=== PATIENT | male | born 1945 | race Caucasian/White ===

== ENCOUNTER → 2017-02-14 | Outpatient (CLI) | payer MEDICARE, OTHER ==
[~2017-02-14] MED LIST: HYDR-3144 PO; LACT1CAP35 PO; LATA2.5D3 EACHEYE; LEVO100T5 PO; LISI-170 PO
[2017-02-14 15:10] LABS: ASPARTATE AMINO TRANSFERASE 21 U/L (15-37); BLOOD UREA NITROGEN 24 mg/dL (7-18)
== END | disposition home or self-care (01) ==
LOC: STAR 13:44
PROVIDERS: ATTEND Orthopaedic Surgery Orthopaedic Surgery of the Spine
DX: Z01.818 Encounter for other preprocedural examination (principal); M47.817 Spondylosis without myelopathy or radiculopathy, lumbosacral region; M46.1 Sacroiliitis, not elsewhere classified; Z98.1 Arthrodesis status
CPT/HCPCS: 36415; 71020; 80053; 81003; 85025; 93005

== ENCOUNTER 2017-02-22 08:25 | Inpatient (IN) | payer MEDICARE, OTHER ==
[~2017-02-22] VITALS: Ht 167.6 cm; Wt 80.4 kg
[2017-02-22] MEDS ORDERED: BUPIVACAINE/PF 0.5% ONE (08:58)
[2017-02-22] MEDS ORDERED: EPINEPHRINE 1 MG/ML, 1ML ONE (08:58)
[2017-02-22] MEDS ORDERED: NEOSPORIN OINT, 15GM ONE (08:58)
[2017-02-22] MEDS ORDERED: LACTATED RINGERS 1,000 ML IV SCH (09:11)
[2017-02-22 09:15] VITALS: BP 136/89
[2017-02-22] MEDS ORDERED: MIDAZOLAM 1 MG/ML, 2ML ONE (10:17)
[2017-02-22] MEDS ORDERED: FENTANYL PF 250 MCG/5ML ONE (10:17)
[2017-02-22] MEDS ORDERED: MAGNESIUM HYDROXIDE 8%, 30ML UDC PO PRN (11:00)
[2017-02-22] MEDS ORDERED: morphine SULFATE 10 MG/ML, 1ML IV PRN (11:00)
[2017-02-22] MEDS ORDERED: SENNA/DOCUSATE TABLET PO PRN (11:00)
[2017-02-22] MEDS ORDERED: ONDANSETRON 2MG/ML, 2ML IV PRN (11:00)
[2017-02-22] MEDS ORDERED: BISACODYL 10 MG SUPP PR PRN (11:00)
[2017-02-22] MEDS ORDERED: PROMETHAZINE 25 MG/ML, 1ML IM PRN (11:00)
[2017-02-22] MEDS ORDERED: DIPHENHYDRAMINE 25 MG CAPSULE PO PRN (11:00)
[2017-02-22] MEDS ORDERED: HYDROcodone/APAP 5/325 TABLET PO PRN (11:00)
[2017-02-22] MEDS ORDERED: ALUMINUM/MAG/SIMETHICONE 30 ML UDC PO PRN (11:00)
[2017-02-22] MEDS ORDERED: ALBUTEROL/IPRATROPIUM 2.5MG/0.5MG, 3 ML NPPB PRN (11:30)
[2017-02-22] MEDS ORDERED: MIDAZOLAM 1 MG/ML, 2ML IV PRN (11:30)
[2017-02-22] MEDS ORDERED: ACETAMINOPHEN 325 MG TABLET PO PRN (11:30)
[2017-02-22] MEDS ORDERED: MEPERIDINE/PF 25MG/0.5ML IVPush PRN (11:30)
[2017-02-22] MEDS ORDERED: LABETALOL 5MG/ML, 20ML IV PRN (11:30)
[2017-02-22] MEDS ORDERED: ONDANSETRON 2MG/ML, 2ML IVPush PRN (11:30)
[2017-02-22] MEDS ORDERED: hydrALAzine 20 MG/ML, 1ML IV PRN (11:30)
[2017-02-22] MEDS ORDERED: PROMETHAZINE 25 MG/ML, 1ML IV PRN (11:30)
[2017-02-22] MEDS ORDERED: OXYcodone 5 MG/5 ML ORAL.SOL UDC PO PRN (11:30)
[2017-02-22] MEDS ORDERED: ACETAMINOPHEN 650 MG/20.3 ML UDC ONE (12:02)
[2017-02-22] MEDS ORDERED: OXYcodone 5 MG/5 ML ORAL.SOL UDC ONE (12:02)
[2017-02-22] MEDS ORDERED: FENTANYL PF 100 MCG/2ML ONE (12:02)
[2017-02-22] MEDS: FENTANYL PF 100 MCG/2ML IV PRN ×2 (12:10→12:20)
[2017-02-22] MEDS ORDERED: HYDROmorphone 1 MG/ML, 1ML ONE ×2 (12:32→13:04)
[2017-02-22] MEDS: HYDROmorphone 1 MG/ML, 1ML IV PRN ×5 (12:34→13:15)
[2017-02-22] MEDS: D5%-0.45% NACL 1,000 ML IV SCH (14:28)
[2017-02-22] MEDS ORDERED: PROPOFOL 10 MG/ML, 20ML ONE (16:52)
[2017-02-22] MEDS ORDERED: SUCCINYLCHOLINE 20 MG/ML, 10ML ONE (16:52)
[2017-02-22] MEDS ORDERED: EPHEDRINE 50 MG/ML, 1ML ONE (16:52)
[2017-02-22] MEDS ORDERED: CEFAZOLIN 1,000 MG ONE (16:52)
[2017-02-22] MEDS ORDERED: ONDANSETRON 2MG/ML, 2ML ONE (16:52)
[2017-02-22] MEDS ORDERED: DEXAMETHASONE 4 MG/ML, 1ML ONE (16:52)
[2017-02-22] MEDS: OXYcodone/APAP 5/325MG TABLET PO PRN ×2 (17:16→21:53)
[2017-02-22] MEDS: CEFAZOLIN PMX 1GM/50ML 50 ML IVPB SCH (18:42)
[2017-02-22 19:59] VITALS: BP 117/70
[2017-02-22] MEDS ORDERED: LATANOPROST OPHTH 0.005%, 2.5ML EACHEYE SCH (21:00)
[2017-02-22] MEDS ORDERED: LACTOBACILLUS ACIDOPHILUS PO SCH (21:00)
[2017-02-22] MEDS: DOCUSATE 100 MG CAPSULE PO SCH (21:14)
[2017-02-22] MEDS: LACTOBACILLUS CHEW TABLET PO SCH (21:14)
[2017-02-23 00:04] VITALS: BP 111/67
[2017-02-23] MEDS: OXYcodone/APAP 5/325MG TABLET PO PRN ×3 (00:25→09:34)
[2017-02-23] MEDS: D5%-0.45% NACL 1,000 ML IV SCH (00:26)
[2017-02-23] MEDS: CEFAZOLIN PMX 1GM/50ML 50 ML IVPB SCH (02:37)
[2017-02-23 03:50] VITALS: BP 119/75
[2017-02-23] MEDS: LACTOBACILLUS CHEW TABLET PO SCH (09:00)
[2017-02-23] MEDS ORDERED: LISINOPRIL 20 MG TABLET PO SCH (09:00)
[2017-02-23] MEDS ORDERED: LEVOTHYROXINE 100 MCG TABLET PO SCH (09:00)
[2017-02-23] MEDS: DOCUSATE 100 MG CAPSULE PO SCH (09:00)
[2017-02-23] MEDS ORDERED: OXYC-302 PO (09:29)
[2017-02-23 09:36] VITALS: BP 106/67
== END 2017-02-23 10:30 | disposition home or self-care (01) | DRG 460 ==
LOC: ORIP 08:25 → 4NOR 13:41 → DCLOUNGE 02-23 10:24
PROVIDERS: ADMIT Orthopaedic Surgery Orthopaedic Surgery of the Spine; ATTEND Orthopaedic Surgery Orthopaedic Surgery of the Spine
PROC: 0SG80ZZ (ICD-10-PCS; principal; 2017-02-22 10:30)
DX: M46.1 Sacroiliitis, not elsewhere classified (principal); I10 Essential (primary) hypertension; E03.9 Hypothyroidism, unspecified; K21.9 Gastro-esophageal reflux disease without esophagitis; H40.9 Unspecified glaucoma; Z79.899 Other long term (current) drug therapy; Z98.1 Arthrodesis status; Z87.891 Personal history of nicotine dependence
CPT/HCPCS: 72202; 76000; J0171; J0690; J1100; J1170; J2250; J2405; J2704; J3010; J3490; C1762; C1776; J0330; J2270; J7120